=== PATIENT | female | born 1940 | race Caucasian/White ===

== ENCOUNTER 2020-03-25 00:16 | Outpatient (CLI) | payer MEDICARE, SELFPAY ==
[2020-03-25 18:39] LABS: SARS-CoV-2 RNA PCR Negative
== END 2020-03-25 00:17 | disposition home or self-care (01) ==
PROVIDERS: Visit Provider Orthopaedic Surgery
DX: Z01.812 Encounter for preprocedural laboratory examination (principal); Z20.828 Contact with and (suspected) exposure to other viral communicable diseases
CPT/HCPCS: 36415; 80048; 87635; C9803; U0003

== ENCOUNTER 2020-03-25 09:12 | Outpatient (CLI) | payer MEDICARE, SELFPAY ==
[2020-03-25 09:55] LABS: Blood Urea Nitrogen 15 mg/dL (7-17); Calcium 9.2 mg/dL (8.4-10.2); Carbon Dioxide 29 mmol/L (22-30); Chloride 102 mmol/L (98-107); Estimated Glomerular Filt Rate > 60; Glucose 78 mg/dL (65-105); Potassium 3.9 mmol/L (3.4-5.0); Sodium 137 mmol/L (137-145)
== END 2020-03-25 09:13 | disposition home or self-care (01) ==
PROVIDERS: Anesthesiology; Visit Provider Orthopaedic Surgery
DX: Z79.899 Other long term (current) drug therapy (principal)
CPT/HCPCS: 36415; 80048

== ENCOUNTER 2020-03-27 00:54 | Day surgery (SDC) | payer MEDICARE, SELFPAY ==
[2020-03-21 12:31] VITALS: BMI 34.4
[2020-03-27] VITALS (7 sets, daily range): BP systolic 137–154; BP diastolic 61–82; PULSE 69–79; RESP 12–20; TEMP 36.3–36.6; O2SAT 95–99
--- NOTE | ~2020-03-27 | XR_ITS ---
EXAMINATION: XR surgery orthopedic DATE: 03/27/2020 12:05 INDICATION: Painful left foot hardware. TECHNIQUE: 3 intraoperative fluoroscopic views of left foot were obtained. I was not present. Fluoros copy exposure time was 1 minute 46 seconds. COMPARISON: Left foot radiographs 11/30/2019 FINDINGS: The pre-existing plates and screws have been removed. There are changes of arthrodesis proc edures of the first, second, and third tarsometatarsal joints and middle naviculocuneiform joint with screws. IMPRESSION: 1. Arthrodesis procedures involving the first, second, and third tarsometatarsal joints and the middl e naviculocuneiform joint. Reviewed, dictated and finalized at location A. IMPRESSION: 1. Arthrodesis procedures involving the first, second, and third tarsometatarsa l joints and the middle naviculocuneiform joint.
--- NOTE | 2020-03-27 06:56 | WPDHPUPDATE1 ---
History and Physical Update Update Date/Time: 03/27/20 06:56 History and Physical has been reviewed, including an updated exam of the patient. There are NO changes in the patient's condition. Risks, benefits, and alternatives have been discussed and questions answered. Patient agrees to proceed with procedure.
[2020-03-27] MEDS: LACTATED RINGERS 1,000 ML 30 ML IV CONT ×2 (08:00→12:17)
[2020-03-27] MEDS: IBUPROFEN IV 800 MG/200 ML 800 MG/200 ML BAG 400 MG IVPB (08:30)
--- NOTE | 2020-03-27 08:47 | WPDANESEPPF ---
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 Patient Data Age: 80 Gender: F Height: 5 ft 1 in Weight: 96.8 kg Last Vital Signs Temp 36.3 C L 03/27/20 07:11 Pulse 69 03/27/20 07:11 Resp 20 03/27/20 07:11 BP 142/61 H 03/27/20 07:11 Pulse Ox 99 03/27/20 07:11 Allergies Allergy/AdvReac Type Severity Reaction Status Date / Time No Known Allergies Allergy Verified 03/27/20 07:49 Home Medications Medication Instructions Recorded Confirmed Type calcium carbonate 600 mg (1,500 1 cap PO DAILY 12/03/19 03/21/20 History mg)-vitamin D3 500 unit capsule denosumab 60 mg/mL subcutaneous 60 mg SUB-Q [id number] 12/03/19 03/21/20 History syringe furosemide 40 mg tablet 40 mg PO QAM 12/03/19 03/21/20 History hydrocodone 7.5 mg-acetaminophen 1 tablet PO Q8H PRN 12/03/19 03/21/20 History 325 mg tablet omeprazole 20 mg tablet,delayed 20 mg PO DAILY 12/03/19 03/21/20 History release brimonidine [Alphagan P] 1 drp OPHTHALMIC (EYE) BID 03/21/20 03/21/20 History omega 7-aww-ijx-fish oil [Fish Oil] 1 cap PO DAILY 03/21/20 03/21/20 History travoprost [Travatan Z] 1 drp OPHTHALMIC (EYE) HS 03/21/20 03/21/20 History vit C-vit M-gdvhwc-tsam-lutein 1 cap PO DAILY 03/21/20 03/21/20 History [PreserVision Lutein] Patient hx anesthesia problems: none Family hx anesthesia problems: none PMFSH Past Medical History Medical History (Updated 03/27/20 @ 08:47 by Deric Jewell MD) Arthritis Arthritis of foot, 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 Loredo History of hip surgery Right, Dr. Fuentes History of right knee surgery Dr. Douglass History of surgery Left shoulder, Dr. Pelaez History of surgery Pain juan f for back, Dr. Serra Family History Family History Other Arthritis Cancer Social History Social History Smoking status: Former smoker Alcohol intake: current Gender identity (if verbalized by the patient): Female Anes - Eval Final PreProcedure Day of Procedure 03/27/20 08:47 Patient weight: morbidly obese Heart: regular rate and rhythm Lungs: clear to auscultation Airway: Mallampati scale class II Neurological: other (alert) Last oral intake: >/= 8 hours ASA classification: III Emergent: no Anesthetic plan: proceed Anesthesia type and monitoring: general LMA and standard monitoring Informed Consent: The patient's anesthetic plan and its attendant risks and benefits were discussed with the patient/family/POA. Questions were solicited and answers provided to the satisfaction of the patient/family/POA.
[2020-03-27] MEDS: ceFAZolin 2 GM/D5W 50 ML 2 GM/50 ML BAG IVPB (09:23)
--- NOTE | 2020-03-27 12:30 | PM.PROC ---
Procedure Note - Detailed Date of procedure: 03/27/20 Pre-op diagnosis: Left Foot Painful Hardware/ Nonunion of Joint Fusi Above with Left foot arthritis, Achilles tendon contracture Post-op diagnosis: same Procedure performed: Left foot removal of hardware, 1st 2nd and 3rd tarsometatarsal arthrodesis, Achilles lengthening. Description of procedure: Indications: Patient is a 80-year-old woman who is status post left foot 2nd and 3rd tarsometatarsal joint arthrodesis. CT scan shows nonunion. She has continued pain. In addition she has pain at the 1st metatarsal cuneiform joint and pain from the plate and screws that are in place. She has it ankle Achilles tendon contracture of approximately 20?. She has failed her non operative treatment presents now for operative treatment. What was done: Patient identified in the preoperative holding. Informed consent given. Operative extremity marked. Patient received intravenous antibiotics. Patient brought to the operating room where underwent general anesthetic by anesthesia team. Positioned supine on operating room table. Time-out performed confirming the patient, site of the surgery and the plan. Left foot prepped draped usual sterile surgical fashion using a ChloraPrep skin solution. Previous incision utilized over the dorsum of the foot with a 15 blade knife. Foot and ankle were exsanguinated with an Esmarch and a calf tourniquet was inflated to 225 mmHg. Hemostasis was controlled electrocautery. Dissection carried down through the fascia. Care taken to protect the neurovascular elements. Previous plate screws in the 2nd and 3rd metatarsal are identified and removed with the screwdriver. Wound was thoroughly irrigated. A new longitudinal incision was made over the dorsomedial aspect of the 1st metatarsal cuneiform joint. Fascia incised in line with skin incision. Joint capsule incised line with skin incision. The tibialis anterior was able to be retracted plantarward. Joint was exposed and the articular surface was removed with a sagittal saw and rongeur. Joint was prepared and thoroughly irrigated with solution. This was then provisionally reduced and checked with image intensification. Fixation achieved with the IO fix 4.3 mm post and screw with good compression. Similarly the 2nd and 3rd tarsometatarsal joint nonunions were prepared by removing the fibrous tissue within nonunion site. Bone ends were drilled with a K-wire to promote bleeding and were irrigated. Screw then fixed with 4.3 mm IO fix compression screws. Good compression noted. Due to degenerative changes of the naviculocuneiform joint at the middle position the joint was prepared with a rongeur and the screw was extended into the navicula. Image intensification confirm placement of all hardware. Wounds were thoroughly irrigated antibiotic solution. Fascia repaired with 3 0 Monocryl interrupted suture. Subcutaneous tissue repaired with 3 0 Monocryl interrupted suture and skin repaired with 4 nylon running suture. Sterile dressings were applied. Tourniquet was released at 90 minutes. Ankle dorsiflexion was then checked again and noted to be -10 degrees from neutral. Fresh 15 blade knife used to make a triple monie section cut in the Achilles tendon. Good release noted. Wounds irrigated and closed with 4 nylon interrupted suture. Sterile dressings applied. Bulky dressing applied followed by cast. The patient was then woken from anesthesia, extubated and taken to the recovery room in stable condition. All sponge, needle, instrument counts were correct at the end of the case. Implants: IOFix 4.3 mm compression screws x3 Anesthesia: GLMA Surgeon: Tino Rodriguez MD Baseball Glove Shaper: 1st historian research assistant Estimated blood loss (mL): 20 Tourniquet time (min): 95 Drains: No Packing: No Pathology: none sent Complications: None Condition: stable Disposition: PACU
== END 2020-03-27 14:12 | disposition home or self-care (01) ==
PROVIDERS: Visit Provider Orthopaedic Surgery
PROC: (CPT 20680; principal; 2020-03-27 09:00)
PROC: (CPT 28750; 2020-03-27 09:00)
DX: T84.84XA Pain due to internal orthopedic prosthetic devices, implants and grafts, initial encounter (principal); M96.0 Pseudarthrosis after fusion or arthrodesis; Y83.8 Other surgical procedures as the cause of abnormal reaction of the patient, or of later complication, without mention of misadventure at the time of the procedure; M67.02 Short Achilles tendon (acquired), left ankle; M81.0 Age-related osteoporosis without current pathological fracture; Z87.891 Personal history of nicotine dependence; E66.01 Morbid (severe) obesity due to excess calories; Z68.41 Body mass index [BMI] 40.0-44.9, adult
CPT/HCPCS: 20680; 28730; 27685; C1769; J0690; J1040; J1100; J1741; J2250; J2704; J3010; J7120